=== PATIENT | female | born 1985 | race Caucasian/White ===

== ENCOUNTER 2017-01-30 12:08 | Inpatient (IN) | payer OTHER ==
[~2017-01-30] VITALS: Ht 160 cm; Wt 86.3 kg
[~2017-01-30 12:08] MED LIST: AMBIEN10 MG PO; ATIVAN0.5 MG PO; IBUPROHM200 MG PO; Phenergan25 MG PO; SEROQUEL25 MG PO; SINEMET 25-1001 TA1 PO; VISTARIL50 MG PO; XANAX0.5 MG PO; ZOFRAN8 MG PO
[2017-01-30 14:20] VITALS: BP 97/57
[2017-01-30] MEDS ORDERED: SEROQUEL100 MG PO (14:25)
[2017-01-30] MEDS ORDERED: KLONOPIN2 M1 PO (14:26)
[2017-01-30] MEDS ORDERED: KLONOPIN1 M1 PO (14:26)
[2017-01-30] MEDS ORDERED: BUPRENORPHINE HY8 MG SL (14:57)
[2017-01-30 15:00] VITALS: BP 97/57
[2017-01-30 15:06] LABS: BILIRUBIN NEGATIVE (NEGATIVE); BLOOD TRACE-INTACT (NEGATIVE); CLARITY SL CLOUDY (CLEAR); COLOR YELLOW (YELLOW); GLUCOSE NEGATIVE (NEGATIVE); KETONE TRACE (NEGATIVE); LEUKO ESTERASE 1+ (NEGATIVE); NITRITE NEGATIVE (NEGATIVE); PH 5.5 (5.0-9.0); SPECIFIC GRAVITY 1.025 (1.005-1.030); UROBILINOGEN 0.2 E.U./dl (0.2-1.0)
[2017-01-30 15:15] LABS: URINE AMPHETAMINES < 1000 (1000ng/ml); URINE BARBITURATES < 200 (200ng/ml); URINE BENZODIAZEPINES > 200 (200ng/ml); URINE CANNABINOIDS (THC) < 50 (50ng/ml); URINE COCAINE < 300 (300ng/ml); URINE METHADONE < 300 (300ng/ml); URINE OPIATES < 300 (300ng/ml)
[2017-01-30 15:18] LABS: URINE PHENCYCLIDINE < 25 (25ng/ml)
[2017-01-30 15:20] LABS: BACTERIA 2+
[2017-01-30 15:21] LABS: EPITHELIAL CELLS 16-20
--- NOTE | 2017-01-30 15:46 | NUR ---
A 31, admitted to , under the services of MAULIK Matias DO with a diagnosis of OPIATE WITHDRAWLS. Chief complaint is OPIATE WITHDRAWLS. Patient arrived via ambulatory from [place]. Monitor applied. Initial assessment completed. Vital signs taken and recorded. MAULIK MATIAS DO notified of admission to the unit. Orders received. See assessment for past medical history, medications and allergies. Patient and/or family oriented to unit. [facility] visitation policy reviewed. Clothing/patient valuable form completed. ARELI SALINAS
[2017-01-30 16:00] VITALS: BP 105/59
[2017-01-30 16:01] LABS: BASO # 0.1 10*3/uL (0.0-0.1); BASO % 0.5 % (0.0-1.0); EOS # 0.4 10*3/uL (0.0-0.4); EOS % 4.1 % (1.0-4.0); HEMATOCRIT 34.3 % (37.0-47.0); HEMOGLOBIN 11.6 g/dl (12.0-16.0); LYMPH % 20.6 % (27.0-41.0); MEAN CELL VOLUME 83.9 fl (81.0-99.0); MEAN CORPUSCULAR HGB 28.4 pg (27.0-31.0); MEAN CORPUSCULAR HGB CONC 33.8 g/dl (33.0-37.0); MEAN PLATELET VOLUME 10.1 fl (9.6-12.3); MONO # 0.4 10*3/uL (0.1-1.0); MONO % 3.9 % (3.0-9.0); NEUT # 6.9 10*3/uL (2.3-7.9); NEUT % 70.7 % (47.0-73.0); PLATELET COUNT AUTOMATED 308 10*3/uL (130-400); RED BLOOD COUNT 4.09 10*6/uL (4.10-5.10); RED CELL DISTRI WIDTH 14.9 % (0-14.5); WHITE BLOOD COUNT 9.7 10*3/uL (4.8-10.8)
[2017-01-30 16:18] LABS: ALBUMIN 3.5 gm/dl (3.1-4.5); ALKALINE PHOSPHATASE 77 U/L (45-117); BUN 11 mg/dl (7-24); CHLORIDE 104 mmol/L (98-107); CREATININE 0.96 mg/dL (0.55-1.02); SGOT/AST 12 IU/L (3-35); SGPT/ALT 21 U/L (12-78); SODIUM 139 mmol/L (136-145); TOTAL PROTEIN 7.4 gm/dL (6.4-8.2)
[2017-01-30 16:21] LABS: ETHYL ALCOHOL < 3.0 mg/dl (<3)
--- NOTE | 2017-01-30 16:57 | NUR ---
FLU VACC GIVEN, LEFT UPPER ARM, PT TOLERATED WELL.
--- NOTE | 2017-01-30 16:57 | NUR ---
PRN ZOFRAN GIVEN FOR NAUSEA
--- NOTE | 2017-01-30 17:30 | NUR ---
PRN MOTRIN AND REQUIP GIVEN FOR GENERALIZED ACHES AND PAINS WELL RESTLESS LEGS AND ARMS. PT RATES DISCOMFORT 4/10.
--- NOTE | 2017-01-30 18:00 | NUR ---
PRN ZOFRAN EFFECTIVE FOR PT NAUSEA.
--- NOTE | 2017-01-30 18:30 | NUR ---
PRN VISTARIL EFFECTIVE, PT REPORTS ANXIETY HAS LESSENED.
--- NOTE | 2017-01-30 18:30 | NUR ---
PRN MOTRIN MINIMALLY EFFECTIVE, PT RATES HER PAIN STILL 4/10.
[2017-01-30 20:00] VITALS: BP 103/66
--- NOTE | 2017-01-30 20:00 | NUR ---
ASSUMED CARE OF PATIENT. ASSESSMENT COMPLETE. RESTING IN BED. NO VOICED COMPLAINTS. CALL LIGHT IN REACH. WILL CONTINUE TO MONITOR.
--- NOTE | 2017-01-30 21:27 | NUR ---
MEDICATED WITH PRN SENNOKOT AND TRAZADONE FOR C/O CONSTIPATION AND HELP TO SLEEP.
[2017-01-31] VITALS: BP 96/58
--- NOTE | 2017-01-31 02:16 | NUR ---
MEDICATED WITH PRN VISTARIL,REQUIP, AND MOTRIN PER ORDERS AND REQUEST.
--- NOTE | 2017-01-31 04:19 | NUR ---
TRANG ALFARO HELPED.
[2017-01-31 08:00] VITALS: BP 96/60
--- NOTE | 2017-01-31 10:00 | NUR ---
Patient reports the following symptoms of withdrawal: body aches, leg pain, nausea and DRUG cravings. Patient given scheduled/PRN medication to control withdrawal symptoms. Close observation will be maintained.
--- NOTE | 2017-01-31 12:53 | NUR ---
PATIENT WAS LOOKING FOR INPATIENT TREATMENT. MOTION PICTURE FILM EXAMINER MADE A FEW REFERRALS AND PATIENT IS ON WAITING LIST. MOTION PICTURE FILM EXAMINER PROVIDED PATIENT WITH A LIST OF OTHER TREATMENTS CENTERS THAT TAKE HER INSURANCE, ALONG WITH OUTPATIENT PROVIDERS. AI BRAGG B.A. MOTION PI[employer]URE FILM EXAMINER
[2017-01-31 16:00] VITALS: BP 103/52
--- NOTE | 2017-01-31 16:54 | NUR ---
PT MEDICATED WITH PRN VISTARIL AND ZOFRAN FOR C/O INCREASED ANXIETY AND NAUSEA. WILL CONTINUE TO MONITOR.
--- NOTE | 2017-01-31 18:00 | NUR ---
PRN MEDS EFFECTIVE. WILL CONTINUE TO MONITOR.
[2017-01-31 20:00] VITALS: BP 131/90
--- NOTE | 2017-01-31 20:15 | NUR ---
MEDICATED WITH PRN MOTRIN.
--- NOTE | 2017-01-31 21:28 | NUR ---
MEDICATED WITH PRN TRAZADONE PER ORDERS AND REQUEST, MOTRIN GIVEN EARLIER HELPED.
[2017-02-01] VITALS: BP 104/74
--- NOTE | 2017-02-01 01:21 | NUR ---
TRAZADONE GIVEN EARLIER EFFECTIVE.
--- NOTE | 2017-02-01 07:58 | NUR ---
MEDICATED WITH MOTRIN FOR GENERALIZED DISCOMFORT.
[2017-02-01 08:00] VITALS: BP 80/44
--- NOTE | 2017-02-01 08:25 | NUR ---
DR. YING NOTIFIED OF BLOOD PRESSURE. MEDICATED WITH MOTRIN FOR GENERALIZED DISCOMFORT.
[2017-02-01 08:54] VITALS: BP 100/56
--- NOTE | 2017-02-01 09:04 | NUR ---
MEDICATED WITH VISTARIL FOR ANXIETY.
[2017-02-01 12:00] VITALS: BP 82/44
--- NOTE | 2017-02-01 13:23 | NUR ---
Patient resting. Responding to scheduled medications with fewer complaints of pain and anxiety.
--- NOTE | 2017-02-01 14:17 | NUR ---
MEDICATED WITH REQUIP BALBIR RESTLESS LEGS.
--- NOTE | 2017-02-01 15:30 | NUR ---
Patient resting. Responding to scheduled medications with fewer complaints of pain and anxiety.
[2017-02-01 16:00] VITALS: BP 90/50
--- NOTE | 2017-02-01 18:59 | NUR ---
MEDICATED WITH MAALOX FOR NAUSEA AND UPSET STOMACH.
[2017-02-01 20:00] VITALS: BP 107/73
--- NOTE | 2017-02-01 20:46 | NUR ---
MEDICATED WITH MOTRIN FOR GENERALIZED DISCOMFORT & VISTARIL FOR ANXIETY.
--- NOTE | 2017-02-01 21:08 | NUR ---
MEDICATED WITH TRAZODONE FOR INSOMNIA.
--- NOTE | 2017-02-01 22:22 | NUR ---
MEDICATED WITH TRAZODONE FOR C/O INSOMNIA.
[2017-02-02] VITALS: BP 102/69
--- NOTE | 2017-02-02 | NUR ---
RESTING IN BED WITH EYES CLOSED. MEDICATIONS GIVEN EARLIER APPARENTLY EFFECTIVE.
[2017-02-02 06:02] LABS: BASO # 0.1 10*3/uL (0.0-0.1); BASO % 0.9 % (0.0-1.0); EOS # 0.4 10*3/uL (0.0-0.4); EOS % 7.4 % (1.0-4.0); HEMATOCRIT 33.9 % (37.0-47.0); HEMOGLOBIN 11.3 g/dl (12.0-16.0); LYMPH # 2.2 10*3/uL (1.3-4.4); MEAN CELL VOLUME 85.2 fl (81.0-99.0); MEAN CORPUSCULAR HGB 28.4 pg (27.0-31.0); MEAN CORPUSCULAR HGB CONC 33.3 g/dl (33.0-37.0); MEAN PLATELET VOLUME 10.7 fl (9.6-12.3); MONO # 0.3 10*3/uL (0.1-1.0); MONO % 5.5 % (3.0-9.0); NEUT # 2.4 10*3/uL (2.3-7.9); PLATELET COUNT AUTOMATED 270 10*3/uL (130-400); RED BLOOD COUNT 3.98 10*6/uL (4.10-5.10); RED CELL DISTRI WIDTH 14.8 % (0-14.5); WHITE BLOOD COUNT 5.3 10*3/uL (4.8-10.8)
[2017-02-02 06:06] LABS: CREATININE 1.04 mg/dL (0.55-1.02)
[2017-02-02 08:00] VITALS: BP 120/59
--- NOTE | 2017-02-02 10:00 | NUR ---
Patient resting. Responding to scheduled medications with fewer complaints of pain and anxiety.
[2017-02-02] MEDS ORDERED: ATARAX,VISTARIL50 MG PO (11:33)
[2017-02-02] MEDS ORDERED: ZOFRAN 4 MG ED2 TAB PO (11:33)
[2017-02-02 12:00] VITALS: BP 108/69
--- NOTE | 2017-02-02 14:20 | NUR ---
Patient discharged in stable condition, referral letter provided to patient with specific instructions and appointment for ongoing treatment. Patient verbalizes understanding of discharge plan.
== END 2017-02-02 14:20 | disposition home or self-care (01) | DRG 897 ==
LOC: 4E 12:08
PROVIDERS: Hospitalist; ADMIT Internal Medicine
DX: F13.239 Sedative, hypnotic or anxiolytic dependence with withdrawal, unspecified (principal); F11.23 Opioid dependence with withdrawal; F31.9 Bipolar disorder, unspecified; E66.09 Other obesity due to excess calories; F41.1 Generalized anxiety disorder; G47.00 Insomnia, unspecified; Z90.49 Acquired absence of other specified parts of digestive tract; Z83.3 Family history of diabetes mellitus; Z80.0 Family history of malignant neoplasm of digestive organs; Z88.8 Allergy status to other drugs, medicaments and biological substances; Z88.2 Allergy status to sulfonamides; Z79.899 Other long term (current) drug therapy; Z68.33 Body mass index [BMI] 33.0-33.9, adult